=== PATIENT | female | born 1985 | race Caucasian/White ===

== ENCOUNTER 2023-06-16 16:28 | Emergency (ER) | payer BC ==
[~2023-06-16] VITALS: Ht 165.1 cm; Wt 78.5 kg
[2023-06-16 16:51] VITALS: BP 110/76; PULSE 81; RESP 20; TEMP 97.7; O2SAT 100
[2023-06-16] MEDS ORDERED: KETOROLAC 30 MG/ML VIAL IVP ONE (19:35)
[2023-06-16 20:30] LABS: BASOPHILS # (AUTO) 0.1 K/uL (0.00-0.22); BASOPHILS % (AUTO) 0.5 % (0.0-2.0); EOSINOPHILS # (AUTO) 0.1 K/uL (0-0.4); EOSINOPHILS % (AUTO) 1.4 % (0.0-4.0); HEMATOCRIT 29.2 % (36-48); HEMOGLOBIN 9.2 g/dL (12.0-16.0); LYMPHOCYTES # (AUTO) 2.3 K/uL (2.5-16.5); MEAN CORPUSCULAR HEMOGLOBIN 23 pg (27-31); MEAN CORPUSCULAR HGB CONC 32 g/dL (33-37); MEAN CORPUSCULAR VOLUME 73.1 fL (80-94); MONOCYTES # (AUTO) 0.7 K/uL (0.8-1.0); MONOCYTES % (AUTO) 7.1 % (1.7-9.3); PLATELET COUNT (AUTO) 429 K/uL (140-450); RED BLOOD CELL COUNT(AUTO) 3.99 MIL/uL (4.20-5.40); RED CELL DISTRIBUTION WIDTH 16.6 % (11.6-13.7); WHITE BLOOD COUNT (AUTO) 10.2 K/uL (4.8-10.8)
[2023-06-16 20:55] LABS: ALBUMIN 3.8 g/dL (3.4-5.0); ANION GAP 10.3 (8-16); CARBON DIOXIDE 29.6 mmol/L (21-32); CREATININE 0.7 mg/dL (0.6-1.3); POTASSIUM 3.9 mmol/L (3.5-5.1); TOTAL BILIRUBIN 0.1 mg/dL (0.0-1.0); TOTAL PROTEIN, SERUM 7.7 g/dL (6.4-8.2)
[2023-06-16 21:48] VITALS: O2SAT 99
[2023-06-16 22:02] LABS: BILIRUBIN,URINE NEGATIVE (NEGATIVE); BLOOD, URINE TRACE-I (NEGATIVE); COLOR,URINE YELLOW (YELLOW); LEUKOCYTE ESTERASE ,URINE NEGATIVE (NEGATIVE); NITRITE, URINE NEGATIVE (NEGATIVE); PROTEIN,URINE NEGATIVE (NEGATIVE); UGLUCOSE NEGATIVE (NEGATIVE); UROBILINOGEN,URINE 0.2 EU/dL (0.2 - 1)
[2023-06-16 22:03] LABS: APPEARANCE,URINE SLIGHTLY CLOUDY (CLEAR)
[2023-06-16] MEDS ORDERED: HYDROcodone/APAP 5/325 MG 1 TAB TAB PO ONE (22:05)
[2023-06-16 22:08] VITALS: TEMP 98.5
[2023-06-16 22:13] LABS: BACTERIA,URINE 10-30 (MOD) /HPF (None Seen); MUCUS,URINE 1+ /LPF (None Seen); RBC,URINE 0-5 /HPF (0-5); WBC,URINE 0-5 /HPF (0-5)
[2023-06-16] MEDS ORDERED: IBUP-2218 PO (22:13)
[2023-06-16] MEDS ORDERED: ACET-8905 PO (22:13)
[2023-06-16] MEDS ORDERED: CEPH-588 PO (22:21)
[2023-06-17 00:13] VITALS: O2SAT 99
[2023-06-17 01:03] VITALS: BP 112/67; PULSE 72; RESP 14; O2SAT 100
== END 2023-06-17 01:04 | disposition home or self-care (01) ==
LOC: MED 16:28
DX: N39.0 Urinary tract infection, site not specified (principal); N80.8 Other endometriosis; Z79.899 Other long term (current) drug therapy
CPT/HCPCS: 36415; 74177; 80053; 81001; 81025; 83605; 83690; 85025; 87040; 87086; 96374; 99285; J1885; Q9967